=== PATIENT | male | born 1965 | race African-American/Black ===

== ENCOUNTER 2019-05-10 09:28 | Emergency (ER) | payer SELFPAY ==
[~2019-05-10] VITALS: Ht 182.9 cm; Wt 134.0 kg
[2019-05-10 09:44] VITALS: BP 155/109
[2019-05-10] MEDS ORDERED: ALBUTEROL (0.083%) 2.5MG/3ML NEB HHN ONE (11:15)
== END 2019-05-10 12:31 | disposition home or self-care (01) ==
LOC: ER 09:28
DX: J45.909 Unspecified asthma, uncomplicated (principal)
CPT/HCPCS: 94640; 99282; Z7610

== ENCOUNTER 2021-12-16 01:52 | Emergency (ER) | payer SELFPAY ==
[~2021-12-16] VITALS: Ht 182.9 cm; Wt 127.0 kg
[2021-12-16] MEDS ORDERED: MORPHINE SULFATE 4 MG/ML CPJ (NOT FOR IM USE) IV STA (03:35)
[2021-12-16] MEDS ORDERED: ONDANSETRON HCL 4MG/2ML INJ IV STA (03:35)
[2021-12-16 03:36] VITALS: BP 168/111
[2021-12-16] MEDS ORDERED: LABETALOL 5MG/ML SYR 20 MG/4 ML SYRINGE IV ONE (03:45)
[2021-12-16] MEDS ORDERED: LORAZEPAM 2MG/ML CPJ IV ONE (04:00)
[2021-12-16] MEDS ORDERED: LEVETIRACETAM 500MG PREMIX 100 ML IV ONE (04:00)
[2021-12-16 04:39] LABS: BASOPHILS % 0.4 % (0.0-2.0); EOSINOPHILS % 0.2 % (0.0-5.0); HEMATOCRIT. 45.5 % (42.0-52.0); HEMOGLOBIN. 14.5 g/dL (14.0-18.0); LYMPHOCYTES % 19.9 % (20.0-50.0); MEAN CORPUSCULAR HEMOGLOBIN 29.5 pg (28.0-32.0); MEAN CORPUSCULAR VOLUME 92.5 fL (80.0-94.0); MEAN PLATELET VOLUME 9.3 fl (7.4-10.4); MONOCYTES % 10.8 % (2.0-8.0); NEUTROPHILS % 68.7 % (40.0-76.0); PLATELET 153 x1000/uL (130-400); RED BLOOD CELL COUNT 4.92 mill/uL (4.7-6.1); RED CELL DISTRIBUTION WIDTH 14.6 % (11.6-14.6)
== END 2021-12-16 04:18 ==
LOC: ER 01:52
DX: I46.9 Cardiac arrest, cause unspecified (principal); R56.9 Unspecified convulsions; J45.909 Unspecified asthma, uncomplicated
CPT/HCPCS: 31500; 36415; 82962; 83605; 85025; 86850; 86900; 86901; 92950; 93005; 99291; J1953; J2060; J2270; J2405; Z7610